=== PATIENT | female | born 1950 | race Caucasian/White ===

== ENCOUNTER → 2018-03-18 | Outpatient (CLI) | payer OTHER ==
[~2018-03-18] MED LIST: REGADENOSON 0.4 MG/5 ML DISP.SYRIN. IV
== END | disposition home or self-care (01) ==
LOC: PCVCIMAG 09:07
DX: R07.9 Chest pain, unspecified (principal); E78.5 Hyperlipidemia, unspecified
CPT/HCPCS: 78452; 93017; A9500; J2785

== ENCOUNTER → 2018-04-01 | Outpatient (CLI) | payer OTHER | END | disposition home or self-care (01) | LOC: PCVCCLINIC 14:07 | PROVIDERS: ATTEND Internal Medicine | DX: R07.9 Chest pain, unspecified (principal); E78.5 Hyperlipidemia, unspecified; Z88.8 Allergy status to other drugs, medicaments and biological substances; Z79.899 Other long term (current) drug therapy | CPT/HCPCS: G0463 ==